=== PATIENT | female | born 1985 | race African-American/Black ===

== ENCOUNTER 2024-01-27 13:04 | Emergency (ER) | payer BC, MEDICAID | END 2024-01-27 13:30 | disposition home or self-care (01) | LOC: NAV ERS 13:04 | DX: S39.012A Strain of muscle, fascia and tendon of lower back, initial encounter (principal); X50.1XXA Overexertion from prolonged static or awkward postures, initial encounter | CPT/HCPCS: 99283 ==

== ENCOUNTER 2024-03-08 11:35 | Emergency (ER) | payer BC, MEDICAID ==
[2024-03-08] MEDS ORDERED: Penicillin V Potassium 250 MG TAB ONE (12:25)
== END 2024-03-08 12:35 | disposition home or self-care (01) ==
LOC: NAV ERS 11:35
DX: K04.4 Acute apical periodontitis of pulpal origin (principal); K02.9 Dental caries, unspecified; K00.2 Abnormalities of size and form of teeth
CPT/HCPCS: 99282

== ENCOUNTER 2024-03-24 16:45 | Emergency (ER) | payer BC, MEDICAID ==
[2024-03-24 17:48] LABS: Influenza A by NAA Not Detected (NotDetected); Influenza B by NAA Not Detected (NotDetected); SARS-CoV-2 NAA Rapid Test Not Detected (NotDetected)
== END 2024-03-24 18:52 | disposition home or self-care (01) ==
LOC: NAV ERS 16:45
DX: I10 Essential (primary) hypertension (principal); Z71.1 Person with feared health complaint in whom no diagnosis is made
CPT/HCPCS: 99282

== ENCOUNTER 2024-03-26 17:09 | Emergency (ER) | payer BC ==
[2024-03-26] MEDS ORDERED: Ibuprofen 800 MG TAB ONE (17:35)
== END 2024-03-26 17:40 | disposition home or self-care (01) ==
LOC: NAV ERS 17:09
DX: S39.012A Strain of muscle, fascia and tendon of lower back, initial encounter (principal); R53.83 Other fatigue; I10 Essential (primary) hypertension; X50.0XXA Overexertion from strenuous movement or load, initial encounter
CPT/HCPCS: 99283

== ENCOUNTER 2024-04-20 18:18 | Emergency (ER) | payer BC ==
[2024-04-20 18:56] LABS: Bilirubin Negative (Negative); Blood, Urine Negative (Negative); Glucose, Urine (Dipstick) Negative (Negative); Ketone, Urine Negative (Negative); Leukocyte Trace (Negative); Nitrite Negative (Negative); Protein, Urine (Dipstick) Negative (Neg-Trace); Specific Gravity, Urine 1.025 (1.005-1.030); Urobilinogen 0.2 mg/dL (Less than 2); pH, Urine 6.5 (5.0-9.0)
[2024-04-20 19:10] LABS: Clarity Hazy (Clear)
[2024-04-20 19:12] LABS: Bacteria/HPF 3+ HPF (None Seen); CAUTI Indications for Culture Pelvic or flank pain; Pregnancy Test - Urine (BHCG) Negative (Negative); Squamous Epithelial 0-3 HPF (0-3); Transitional Epithelial 0-3 HPF (None Seen)
[2024-04-20 19:13] LABS: Pregu Control Background? CLEAR/WHITE (CLR/WHITE); Pregu Control Bar Appear? YES (CONTROL BAR); Specific Gravity 1.025 (1.002-1.036)
[2024-04-20 19:14] LABS: Urine Culture Reflex No No
[2024-04-20] MEDS ORDERED: Cephalexin 250 MG CAP ONE (19:19)
[2024-04-20] MEDS ORDERED: Phenazopyridine HCl 100 MG TAB ONE (19:19)
== END 2024-04-20 19:28 | disposition home or self-care (01) ==
LOC: NAV ERS 18:18
DX: N39.0 Urinary tract infection, site not specified (principal); I10 Essential (primary) hypertension
CPT/HCPCS: 81001; 81025; 99284

== ENCOUNTER 2025-06-30 08:35 | Emergency (ER) | payer SELFPAY ==
[2025-06-30 09:22] LABS: Glucose, Urine (Dipstick) Negative (Negative); Leukocyte Small (Negative); Protein, Urine (Dipstick) Negative (Neg-Trace); Specific Gravity, Urine 1.015 (1.005-1.030)
[2025-06-30 09:28] LABS: Bacteria/HPF 3+ HPF (None Seen); CAUTI Indications for Culture Pelvic or flank pain; RBC/HPF 0-3 HPF (0-3)
[2025-06-30 09:29] LABS: Urine Culture Reflex No No
== END 2025-06-30 09:48 | disposition home or self-care (01) ==
LOC: NAV ERS 08:35
DX: B34.9 Viral infection, unspecified (principal); N30.00 Acute cystitis without hematuria
CPT/HCPCS: 81001; 87077; 87086; 87428; 99283